=== PATIENT | female | born 1960 | race Caucasian/White ===

== ENCOUNTER → 2016-10-02 | Outpatient (CLI) | payer BC ==
--- NOTE | 2016-10-02 12:23 | REP ---
Digital screening bilateral mammography with CAD: Comparison study: June 23, 2013, July 06, 2014, and July 19, 2015. Findings: There is a nodular neodensity projecting in the upper outer quadrant of the right breast which merits further evaluation. Scattered fibroglandular elements are seen again otherwise unchanged. No microcalcification or spiculation is seen. Impression: BIRADS category 0 incomplete breast imaging. Nodular neodensity projecting in the upper outer quadrant of the right breast. Diagnostic right breast mammography and focused right breast sonography recommended. BI-RADS/ACR category 0 mammogram. Incomplete: Additional imaging and/or prior images are needed before a final assessment can be assigned. This mammogram was interpreted with the aid of an FDA-approved computer-aided detection system. The patient states that she has not had a clinical breast exam in over a year. The patient letter being requested is M0. Signed by Scar Haywood MD 10/02/2016 03:23 P
== END ==
LOC: M WHC 10:00
PROVIDERS: ATTEND Family Medicine
DX: R92.2 Inconclusive mammogram (principal)